=== PATIENT | female | born 1950 | race Caucasian/White ===

== ENCOUNTER → 2018-04-15 15:48 | Outpatient (CLI) | payer BC, MEDICARE | END | disposition home or self-care (01) | LOC: D.CT 15:48 | DX: R42 Dizziness and giddiness (principal); G43.909 Migraine, unspecified, not intractable, without status migrainosus ==

== ENCOUNTER → 2018-04-29 15:39 | Outpatient (CLI) | payer BC, MEDICARE | END | disposition home or self-care (01) | LOC: D.MRI 15:39 | DX: G43.109 Migraine with aura, not intractable, without status migrainosus (principal) ==

== ENCOUNTER → 2019-09-01 15:09 | Outpatient (CLI) | payer BC, MEDICARE | END | disposition home or self-care (01) | LOC: D.CT 15:00 | PROVIDERS: ATTEND Specialist | DX: R51 Headache (principal) ==

== ENCOUNTER → 2020-09-15 10:40 | Outpatient (CLI) | payer BC, MEDICARE | END | disposition home or self-care (01) | LOC: D.MRI 09-13 11:00 | PROVIDERS: ATTEND Psychiatry & Neurology Neurology | DX: D32.0 Benign neoplasm of cerebral meninges (principal) ==